=== PATIENT | male | born 1995 | race Two or more races ===

== ENCOUNTER 2025-05-05 18:07 | Emergency (ER) | payer SELFPAY ==
[~2025-05-05] VITALS: Ht 175.3 cm; Wt 80.5 kg
--- NOTE | 2025-05-05 19:40 | DVH ---
CLINICAL INDICATION: left third finger pain TECHNIQUE: 3 radiographic views of the left fingers were obtained. Comparison: None FINDINGS/IMPRESSION: Soft tissue swelling is noted over the distal phalanx of the left 3rd digit. There are no radiopaque foreign bodies. No fracture or dislocation.
[2025-05-05 20:46] VITALS: BP 136/88; PULSE 60; RESP 18; TEMP 98.3; O2SAT 100
[2025-05-05] MEDS ORDERED: ACET500T58 PO (20:46)
[2025-05-05] MEDS ORDERED: AMOX875T4 PO (20:46)
--- NOTE | 2025-05-05 20:46 | ED.PDOC ---
History of Present Illness(SKN HPI Comments 29-year-old male presents to ER with complaints of left 3rd finger pain x2 weeks. Patient reports he has been experiencing pain/redness/swelling and intermittent numbness localized to left 3rd finger x2 weeks. He rates his current pain an 8/10 to left 3rd finger without radiation and denies use of medications for current symptoms. Denies fever, skin drainage, injury or any further symptoms/complaints Chief Complaint: Upper Extremity Time Seen by MD: 18:17 Primary Care Provider: UNKNOWN History of Present Illness: Nurses Notes, Medications, Allergies Allergies: Coded Allergies: NO KNOWN ALLERGIES (Unverified , 05/05/25) Home Meds Active Scripts Amoxicillin & Pot Clavulanate (Amoxicillin/Potassium Cla) 875 Mg Tab, 1 TAB PO BID for 7 Days, #14 TAB 0 Refills Prov:SALLY LYONS 05/05/25 Acetaminophen (Acetaminophen) 500 Mg Tab, 500 MG PO Q4HPRN, #30 TAB 0 Refills Prov:SALLY LYONS 05/05/25 Information Source: Patient Mode of Arrival: Ambulatory Past Medical History PAST MEDICAL HISTORY: Denies Surgical History: Denies all surgeries Family History Family History: Unknown Social History Smoker: Non-Smoker Alcohol: Denies ETOH Use Drugs: Denies Drug Use Lives In: Home Constitutional: denies: chills, diaphoresis, fatigue, fever, malaise, sweats, weakness, others EENTM: denies: blurred vision, double vision, ear bleeding, ear discharge, ear drainage, ear pain, ear ringing, eye pain, eye redness, hearing loss, mouth pain, mouth swelling, nasal discharge, nose bleeding, nose congestion, nose pain, photophobia, tearing, throat pain, throat swelling, voice changes, others Respiratory: denies: cough, hemoptysis, orthopnea, SOB at rest, shortness of breath, SOB with excertion, stridor, wheezing, others Cardiovascular: denies: chest pain, dizzy spells, diaphoresis, Dyspnea on exertion, edema, irregular heart beat, left arm pain, lightheadedness, palpitations, PND, syncope, others Gastrointestinal: denies: abdomen distended, abdominal pain, blood streaked bowels, constipated, diarrhea, dysphagia, difficulty swallowing, hematemesis, melena, nausea, poor appetite, poor fluid intake, rectal bleeding, rectal pain, vomiting, others Genitourinary: denies: burning, dysuria, flank pain, frequency, hematuria, incontinence, penile discharge, penile sore, pain, testicle pain, testicle swelling, urgency, others Neurological: denies: dizziness, fainting, headache, left sided numbness, left sided weakness, numbness, paresthesia, pre-existing deficit, right sided numbness, right sided weakness, seizure, speech problems, tingling, tremors, weakness, others Musculoskeletal: denies: back pain, gout, joint pain, joint swelling, muscle pain, muscle stiffness, neck pain, others Integumetry: reports: others (As stated in HPI) Allergic/Immunocompromised: denies: Difficulty Healing, Frequent Infections, Hives, Itching, others Hematologic/Lymphatic: denies: anemia, blood clots, easy bleeding, easy bruising, swollen glands, others Endocrine: denies: excessive hunger, excessive sweating, excessive thirst, excessive urination, flushing, intolerance to cold, intolerance to heat, unexplained weight gain, unexplained weight loss, others Psychiatric: denies: anxiety, bipolar disorder, depression, hopeless, panic disorder, schizophrenia, sleepless, suicidal, others Physical Exam General Appearance: No Apparent Distress HEENT: PERRL/EOMI Neck: Full Range of Motion, Non-Tender, Normal Respiratory: Chest Non-Tender, Lungs Clear, No Accessory Muscle Use, No Respiratory Distress, Normal Breath Sounds Cardiovascular: No Murmur, No Gallop, Regular Rate/Rhythm Breast Exam: Deferred Gastrointestinal: NOT DONE Genitalia: Deferred Pelvic: Deferred Rectal: Deferred Extremities: Normal capillary refill, Normal range of motion Neurologic: Alert, No Motor Deficits, Normal Affect, Normal Mood, No Sensory Deficits Cerebellar Function: Normal Reflexes: Normal Skin: Dry, Warm, Other (TTP/mild swelling/erythema noted surrounding nailbed of left 3rd finger. No bleeding/drainage/further skin changes noted. Patient able to fully move all fingers of left hand. Pulses intact) Peripheral Pulses: 2+ Radial (R), 2+ Radial (L), 2+ Brachial (R), 2+ Brachial (L) Lymphatic: No Adenopathy Was a procedure done? Was a procedure done?: No Sedation Sedation?: No Differential Diagnosis (INTG) Differential Diagnosis: Abscess Differential Diagnosis: Neurovascular Injury Differential Diagnosis: Puncture Wound, Other (fracture) X-Ray, Labs, Meds, VS Vital Signs Date Time Temp Pulse Resp B/P (MAP) Pulse Ox O2 Delivery O2 Flow Rate FiO2 05/05/25 20:46 98.3 60 18 136/88 (104) 100 98.3 05/05/25 18:10 98.5 72 16 142/88 98 98.5 PATIENT: LÓPEZ VIRAMONTES ACCT: [id number] UNIT: [id number] : 1995 LOC: ER ROOM / BED: / AGE / SEX: 29 / M ADM STATUS: REG ER SERVICE 16 ORDERING PHYSICIAN: SALLY YLONS PROCEDURE(s): LFIN3 - L 3RD FINGER XRAY REASON: left third finger pain ORDER NUMBER(s): [id number], ACCESSION NUMBER(s): [id number] CLINICAL INDICATION: left third finger pain TECHNIQUE: 3 radiographic views of the left fingers were obtained. Comparison: None FINDINGS/IMPRESSION: Soft tissue swelling is noted over the distal phalanx of the left 3rd digit. There are no radiopaque foreign bodies. No fracture or dislocation. ATED BY: JUAN PLATA Jr., DO DICTATED DATE/TIME: 05/05/251937 SIGNED BY: JUAN PLATA Jr., SIGNED DATE/TIME: 05/05/251937 CC: Left third finger x-ray reviewed Elevation and warm soaks discussed and advised Advised to follow up with PCP in 1-2 days Patient verbalized understanding and agreeable with current plan of care Advised to return to ER immediately if symptoms worsen Images Reviewed?: Images reviewed and evaluated by me Time of 1ST Reevaluation: 20:22 Reevaluation 1ST: N/A Patient Education/Counseling: Diagnosis, Treatment, Prognosis, Need For Follow Up Family Education/Counseling: No Family Present SEPSIS Sepsis Screen Date sepsis recognized/suspect: May 05, 2025 Time Sepsis recognized/suspect: 1809 Recent Procedure: No On Antibiotic Therapy: No Respiratory Rate >20: No Heart Rate >90: No Temp<36 C (96.8 F) or >38.3 C: No SBP <90 or MAP <65 mmHG: No New Acute Mental Status Change: No Is the patient on CPAP, BIPAP,: No Physician Orders L 3rd Finger Xray (05/05/25 18:17) Vital Signs Date Time Temp Pulse Resp B/P (MAP) Pulse Ox O2 Delivery O2 Flow Rate FiO2 05/05/25 20:46 98.3 60 18 136/88 (104) 100 98.3 05/05/25 18:10 98.5 72 16 142/88 98 98.5 Departure 1 Departure Time of Disposition: 20:44 Impression: Primary Impression: Paronychia of finger of left hand Disposition: 01 HOME / SELF CARE / HOMELESS Condition: Stable e-Prescriptions Amoxicillin & Pot Clavulanate (Amoxicillin/Potassium Cla) 875 Mg Tab 1 TAB PO BID for 7 Days, #14 TAB 0 Refills Prov: SALLY LYONS 05/05/25 Acetaminophen (Acetaminophen) 500 Mg Tab 500 MG PO Q4HPRN, #30 TAB 0 Refills Prov: SALLY LYONS 05/05/25 Discharged With: Self Critical Care Note Critical Care Time?: No Stability Stability form required: No Heart Score Heart Score: Heart Score Response (Comments) Value History N/A 0 EKG N/A 0 Age N/A 0 Risk Factors N/A 0 Troponin N/A 0 Total 0 SALLY LYONS May 05, 2025 20:46
== END 2025-05-05 20:50 | disposition home or self-care (01) ==
LOC: ER 18:07
DX: L03.012 Cellulitis of left finger (principal)
CPT/HCPCS: 73140